=== PATIENT | female | born 1995 | race Caucasian/White ===

== ENCOUNTER → 2017-03-15 | Outpatient (CLI) | payer OTHER ==
[~2017-03-15] MED LIST: AUGM875T28 PO; DOXY-278 PO; PRENTAB29 PO
--- NOTE | 2017-03-16 14:01 | REP ---
NUCLEAR THYROID SCAN WITH UPTAKE: Following the oral administration of 377 microcuries of Iodine-123 of sodium iodine, thyroid uptake is measured. The 24 hour uptake is 28.1% which is within the normal range of 25 to 35%. Thyroid scan shows both lobes of the thyroid to be symmetrical in size. Both lobes are relatively normal in size. No focal hot or cold nodule is seen. IMPRESSION: Unremarkable thyroid uptake and scan. Signed by Jhon Natarajan MD 03/16/2017 03:58 P
== END ==
LOC: M RAD 13:07
PROVIDERS: ATTEND Internal Medicine Endocrinology, Diabetes & Metabolism
DX: R94.6 Abnormal results of thyroid function studies (principal)

== ENCOUNTER 2017-05-08 11:39 | Emergency (ER) | payer OTHER ==
[~2017-05-08] VITALS: Ht 160 cm; Wt 50.0 kg
[2017-05-08 11:39] VITALS: BP 102/67
[2017-05-08] MEDS ORDERED: PRENTAB29 PO (12:06)
[2017-05-08] MEDS ORDERED: DOXY-278 PO (12:06)
[2017-05-08] MEDS ORDERED: AUGM875T28 PO (13:06)
[2017-05-08] MEDS ORDERED: AUGMENTIN 875 MG TAB PO ONE (13:15)
== END 2017-05-08 13:47 | disposition home or self-care (01) ==
LOC: M ED 11:39
DX: S61.233A Puncture wound without foreign body of left middle finger without damage to nail, initial encounter (principal); W55.01XA Bitten by cat, initial encounter; Y92.099 Unspecified place in other non-institutional residence as the place of occurrence of the external cause; Y93.9 Activity, unspecified; Y99.9 Unspecified external cause status; Z79.899 Other long term (current) drug therapy

== ENCOUNTER 2017-10-23 20:10 | Emergency (ER) | payer OTHER ==
[2017-10-23 22:23] LABS: BASO % 0.3 % (0.0-1.0); EOS # 0.1 10^3/uL (0.0-0.50); EOS % 0.9 % (0.0-3.0); HEMATOCRIT 34.7 % (36.0-47.0); HEMOGLOBIN 12.3 g/dl (12.0-16.0); IMMATURE GRANULOCYTE % 0.4 % (0-3.0); LYMPH % 8.8 % (24.0-44.0); MEAN CORPUSCULAR HEMOGLOBIN 31.9 pg (27.0-33.0); MEAN CORPUSCULAR HGB CONC 35.4 g/dl (32.0-36.5); MEAN CORPUSCULAR VOLUME 90.1 fl (80.0-96.0); MONO # 0.6 10^3/uL (0.0-0.8); MONO % 4.9 % (0.0-5.0); NEUTROPHILS % 84.7 % (36.0-66.0); PLATELET COUNT, AUTOMATED 308 10^3/uL (150-450); RED BLOOD COUNT 3.85 10^6/uL (4.00-5.40); RED CELL DISTRIBUTION WIDTH 12.5 % (11.5-14.5); WHITE BLOOD COUNT 11.9 10^3/uL (4.0-10.0)
[2017-10-23] MEDS: ONDANSETRON 4 MG ORAL DISINTEGRATING TAB (S0181) PO (22:27)
[2017-10-23] MEDS: NS 1,000 ML IV (22:27)
[2017-10-23 23:30] LABS: INFLUENZA A AMPLIFICATION NEGATIVE (NEGATIVE); INFLUENZA B AMPLIFICATION NEGATIVE (NEGATIVE)
== END 2017-10-24 00:06 | disposition home or self-care (01) ==
LOC: M ED 10-24 00:06
DX: O99.619 Diseases of the digestive system complicating pregnancy, unspecified trimester (principal); K29.70 Gastritis, unspecified, without bleeding; Z3A.00 Weeks of gestation of pregnancy not specified; O99.330 Smoking (tobacco) complicating pregnancy, unspecified trimester; F17.210 Nicotine dependence, cigarettes, uncomplicated
CPT/HCPCS: 85025